=== PATIENT | female | born 1995 | race African-American/Black ===

== ENCOUNTER 2020-01-11 15:43 | Emergency (ER) | payer OTHER ==
--- NOTE | 2020-01-11 15:52 | PDOC ---
Rapid Medical Evaluation Time Seen by Provider: 01/11/20 15:50 Medical Evaluation: 01/11/20 15:50 I performed a brief in-person evaluation of this patient. Pt is a 24 y/o female who presents to the ED with complaint of lightheadedness and dizziness x 4 days. LMP 01/06/20. She denies fevers or chills. Denies heavy menstrual cycles. Denies med hx. Pertinent physical exam findings: speaking in full sentences, nontoxic, walking without ataxia I have ordered the following: saline lock, labs, fluids, hcg Patient to proceed to ED for further evaluation. Discharge Disposition - Diagnosis Lightheaded - Referrals - Patient Instructions - Post Discharge Activity
[2020-01-11] MEDS ORDERED: SODIUM CHLORIDE 0.9% 500 ML INFUS.BAG IV ONE (15:53)
[2020-01-11 15:57] VITALS: PULSE 82; TEMP 98.1; BMI 25.2
[2020-01-11 17:38] LABS: BASO % 1.1 % (0-2.0); EOS % 0.8 % (0-4.5); HEMATOCRIT 45.4 % (32.4-45.2); HEMOGLOBIN 15.1 GM/dL (10.7-15.3); LYMPH % 37.2 % (8-40); MCH 28.9 pg (25.7-33.7); MCHC 33.2 g/dl (32.0-36.0); MEAN CELL VOLUME 87.2 fl (80-96); MEAN PLT VOLUME 7.5 fl (7.5-11.1); MONO % 4.9 % (3.8-10.2); PLATELET COUNT 316 K/MM3 (134-434); WHITE BLOOD COUNT 3.9 K/mm3 (4.0-10.0)
--- NOTE | 2020-01-11 17:39 | PDOC ---
History of Present Illness - General Chief Complaint: Lightheaded Stated Complaint: LIGHTHEADED Time Seen by Provider: 01/11/20 15:50 History Source: Patient Exam Limitations: No Limitations - History of Present Illness Initial Comments: 01/11/20 17:35 24-year-old female presents the ED with complaints of dizziness intimately for the past 4 days worsened with standing especially in the morning. Patient denies head injury, recent illness, recent travel, dental work, ear pain, neck pain, shortness of breath or chest pain. Patient denies change in diet but does state decreased appetite for the past few days secondary to the dizziness. Patient denies any visual changes or nausea. Patient denies medical history or recent MVA. Is this a multiple visit Asthma Patient?: No Timing/Duration: intermittent Severity: mild, moderate Past History - Travel History Traveled outside of the country in the last 30 days: No Close contact w/someone who was outside of country & ill: No - Medical History Allergies/Adverse Reactions: Allergies Allergy/AdvReac Type Severity Reaction Status Date / Time No Known Allergies Allergy Verified 01/11/20 15:50 Home Medications: Ambulatory Orders NK [No Known Home Medication] 01/11/20 COPD: No - Reproductive History Is Patient Now?: No - Psycho-Social/Smoking History Patient Lives Alone: No Lives with/in: spouse/SO Smoking History: Current some day smoker Have you smoked in the past 12 months: Yes Number of Cigarettes Smoked Daily: 0 Information on smoking cessation initiated: Yes - Substance Abuse Hx (Audit-C & DAST Scrn) How often the patient has a drink containing alcohol: Monthly or less Number of drinks the patient has on a typical day: 1 or 2 How often the patient has six or more drinks on one occasion: Never Score: In Men: 4 or > Positive; In Women: 3 or > Positive: 1 Screen Result (Pos requires Nsg. Audit-10AR): Negative In the last yr the pt used illegal drug/Rx for NonMed reason: Yes Score: Yes response is considered Positive: 1 Screen Result (Positive result requires Nsg. DAST-10): Positive Review of Systems - Review of Systems Able to Perform ROS?: Yes Constitutional: No: Symptoms Reported HEENTM: No: Symptoms Reported Respiratory: No: Symptoms reported Cardiac (ROS): Yes: Lightheadedness ABD/GI: Yes: Poor Appetite : No: Symptoms Reported Musculoskeletal: No: Symptoms Reported Integumentary: No: Symptoms Reported Endocrine: No: Symptoms Reported Hematologic/Lymphatic: No: Symptoms Reported *Physical Exam - Vital Signs Last Vital Signs Temp Pulse Resp BP Pulse Ox 98.1 F 82 18 123/83 100 01/11/20 15:51 01/11/20 15:51 01/11/20 15:51 01/11/20 15:51 01/11/20 15:51 - Physical Exam General Appearance: Yes: Nourished, Appropriately Dressed. No: Apparent Distr ess HEENT: positive: EOMI, SANJAY, TMs Normal, Pharynx Normal. negative: Pale Conjunctivae Neck: positive: Normal Thyroid, Supple Respiratory/Chest: positive: Lungs Clear, Normal Breath Sounds. negative: Respiratory Distress, Accessory Muscle Use Cardiovascular: positive: Regular Rhythm, Regular Rate. negative: Murmur Gastrointestinal/Abdominal: positive: Soft. negative: Tenderness Integumentary: positive: Normal Color, Warm, Moist Neurologic: positive: Motor Strength 5/5 (Ambulatory negative Hallpike's) Heart Score/ECG Review - ECG Intrepretation Rhythm: Regular Rhythm (Normal sinus rhythm with sinus arrhythmia. Rate 62. QTc 491 ms.) ED Treatment Course - LABORATORY CBC & Chemistry Diagram: 01/11/20 17:30 01/11/20 17:30 - RADIOLOGY Radiology Studies Ordered: Category Date Time Status HEAD CT WITHOUT CONTRAST [CT] Stat CT Scan 01/11/20 17:29 Ordered Medical Decision Making - Medical Decision Making 01/11/20 17:38 Chief complaint: Dizziness with loss of appetite over the past 4 days. No other complaints no change in weight no injury no illness. Exam: Patient normal physical exam vital signs stable negative Hallpike's. Plan: Labs, IV fluids, and head CT ordered, would like to check for orthostatic hypotension 01/11/20 18:15 Laboratory Tests 01/11/20 01/11/20 01/11/20 17:30 17:30 17:30 WBC 3.9 L Hgb 15.1 Hct 45.4 H Neutrophils % 56.0 Sodium 139 Potassium 4.2 Chloride 105 Carbon Dioxide 30 Anion Gap 4 L BUN 9.8 Creatinine 1.0 Est GFR (CKD-EPI)NonAf 78.24 Calcium 9.8 Total Bilirubin 0.8 AST 10 L ALT 25 Alkaline Phosphatase 46 Total Protein 8.2 Albumin 4.0 Serum , Qual Negative awaiting head ct 01/11/20 18:55 Laboratory Tests 01/11/20 01/11/20 01/11/20 17:30 17:30 17:30 WBC 3.9 L Hgb 15.1 Hct 45.4 H Absolute Neuts (auto) 2.2 Neutrophils % 56.0 Sodium 139 Potassium 4.2 Chloride 105 Carbon Dioxide 30 Anion Gap 4 L Random Glucose 104 Calcium 9.8 Total Bilirubin 0.8 AST 10 L ALT 25 Serum , Qual Negative 01/13/20 15:00 Discharge - Discharge Information Problems reviewed: Yes Clinical Impression/Diagnosis: Lightheaded, Dizziness and giddiness, Orthostatic hypotension Disposition: HOME - Follow up/Referral - Patient Discharge Instructions Patient Printed Discharge Instructions: Vertigo Additional Instructions: Drink plenty of fluids. Follow-up with your doctor soon as possible Return to the emergency room for any worsening symptoms - Post Discharge Activity Work/Back to School Note: Back to Work
[2020-01-11 17:55] LABS: BILIRUBIN,TOTAL 0.8 mg/dL (0.2-1); BLOOD UREA NITROGEN 9.8 mg/dL (7-18); CALCIUM 9.8 mg/dL (8.5-10.1); POTASSIUM 4.2 mmol/L (3.5-5.1); TOT PROT 8.2 g/dl (6.4-8.2)
[2020-01-11 19:44] LABS: MAGNESIUM 2.1 mg/dL (1.8-2.4)
--- NOTE | 2020-01-11 20:07 | PDOC ---
*Physical Exam - Vital Signs Last Vital Signs Temp Pulse Resp BP Pulse Ox 98.1 F 82 18 123/83 100 01/11/20 15:51 01/11/20 15:51 01/11/20 15:51 01/11/20 15:51 01/11/20 15:51 ED Treatment Course - LABORATORY CBC & Chemistry Diagram: 01/11/20 17:30 01/11/20 17:30 - ADDITIONAL ORDERS Additional order review: Laboratory Results 01/11/20 01/11/20 17:30 17:30 Sodium 139 Potassium 4.2 Chloride 105 Carbon Dioxide 30 Anion Gap 4 L BUN 9.8 Creatinine 1.0 Est GFR (CKD-EPI)AfAm 90.68 Est GFR (CKD-EPI)NonAf 78.24 Random Glucose 104 Calcium 9.8 Magnesium 2.1 Total Bilirubin 0.8 AST 10 L ALT 25 Alkaline Phosphatase 46 Total Protein 8.2 Albumin 4.0 TSH 0.75 Serum , Qual Negative 01/11/20 17:30 RBC 5.20 MCV 87.2 MCHC 33.2 RDW 15.0 MPV 7.5 Neutrophils % 56.0 Lymphocytes % 37.2 Monocytes % 4.9 Eosinophils % 0.8 Basophils % 1.1 Medical Decision Making - Medical Decision Making 01/11/20 21:26 + orthostatic v/s changes. + [facility] [place] Cov[place] pending. encouraged. patient instructed increase oral hydration. patient reports not drinking water all day today. Discharge - Discharge Information Problems reviewed: Yes Clinical Impression/Diagnosis: Lightheaded, Dizziness and giddiness, Orthostatic hypotension Disposition: HOME - Follow up/Referral - Patient Discharge Instructions Patient Printed Discharge Instructions: Vertigo Additional Instructions: Drink plenty of fluids. Follow-up with your doctor soon as possible Return to the emergency room for any worsening symptoms - Post Discharge Activity Work/Back to School Note: Back to Work
[2020-01-11] MEDS ORDERED: MECLIZINE HCL 25 MG TABLET (FP) PO ONE (20:10)
[2020-01-11] MEDS ORDERED: MECLIZINE HCL 25 MG TABLET (FP) ONE (20:18)
[2020-01-11 20:38] LABS: PH,URINE 5.5 (5.0-8.0); URINE APPEARANCE CLEAR; URINE BILIRUBIN NEGATIVE (NEGATIVE); URINE COLOR YELLOW; URINE GLUCOSE (UA) NEGATIVE (NEGATIVE); URINE KETONE NEGATIVE (NEGATIVE); URINE LEUK ESTERASE NEGATIVE (NEGATIVE); URINE NITRITE NEGATIVE (NEGATIVE); URINE PROTEIN NEGATIVE (NEGATIVE)
[2020-01-11 21:24] VITALS: BP 120/72
--- NOTE | 2020-01-12 09:28 | EKG ---
Test Reason : Blood Pressure : / mmHG Vent. Rate : 062 BPM Atrial Rate : 062 BPM P-R Int : 192 ms QRS Dur : 086 ms QT Int : 386 ms P-R-T Axes : 053 067 036 degrees QTc Int : 391 ms NORMAL SINUS RHYTHM WITH SINUS ARRHYTHMIA NONSPECIFIC T WAVE ABNORMALITY ABNORMAL ECG NO PREVIOUS ECGS AVAILABLE Confirmed by MD MARIA LUISA, JANIA ([id number]) on 01/12/2020 9:27:53 AM Referred By: Confirmed By:JANIA GLASS MD
== END 2020-01-11 22:00 | disposition home or self-care (01) ==
LOC: JER 15:43
DX: R42 Dizziness and giddiness (principal)
CPT/HCPCS: 36415; 70450-TC; 80053; 81003; 83735; 84443; 84703; 85025; 93005; 93010; 99285-25; U0003